=== PATIENT | female | born 1995 | race Caucasian/White ===

== ENCOUNTER 2016-09-12 20:01 | Emergency (ER) | payer MEDICARE ==
[~2016-09-12 20:01] MED LIST: COLACE100 MG PO; IBUPROFEN800 MG PO
[2016-09-12 21:39] LABS: HEMOGLOBIN 14.1 gm/dl (12.3-15.3); RED BLOOD COUNT 5.3 M/UL (4.00-5.10); WHITE BLOOD COUNT 12.9 K/UL (4.5-11.0)
[2016-09-12 21:59] LABS: BUN/CREATININE RATIO 21 (0-10)
== END 2016-09-12 23:08 | disposition home or self-care (01) ==
LOC: ER1 20:01
PROVIDERS: Preventive Medicine Occupational Medicine
DX: N39.0 Urinary tract infection, site not specified (principal)
CPT/HCPCS: 36415; 80053; 81001; 82150; 83690; 84703; 85025; 86140; 87040; 87086; 96374; 96375; 99284; J0696; J1885; J2405; J7030; J7050

== ENCOUNTER 2020-08-18 19:55 | Emergency (ER) | payer OTHER ==
[~2020-08-18 19:55] MED LIST changes: +KEFLEX CAP 500500 MG PO
[2020-08-18] MEDS ORDERED: ONDANSETRON ODT4 MG SL (21:23)
[2020-08-18] MEDS ORDERED: IMITREX50 MG PO (21:23)
== END 2020-08-18 23:55 | disposition home or self-care (01) ==
LOC: ER1 19:55
DX: G43.909 Migraine, unspecified, not intractable, without status migrainosus (principal); F41.9 Anxiety disorder, unspecified; F17.290 Nicotine dependence, other tobacco product, uncomplicated; Z88.2 Allergy status to sulfonamides
CPT/HCPCS: 93005; 96372; 99284; J0595; J1885; J2060; J2270; J2550; J3030

== ENCOUNTER 2020-10-01 09:26 | Emergency (ER) | payer OTHER ==
[~2020-10-01 09:26] MED LIST changes: +IMITREX50 MG PO; +ONDANSETRON ODT4 MG SL
[2020-10-01 12:16] LABS: HEMOGLOBIN 14.6 gm/dl (12.3-15.3); RED BLOOD COUNT 4.83 M/UL (4.00-5.10); WHITE BLOOD COUNT 12.9 K/UL (4.5-11.0)
[2020-10-01 12:43] LABS: BUN/CREATININE RATIO 14 (0-10)
[2020-10-01] MEDS ORDERED: TORADOL 10 MG T10 MG PO (15:15)
[2020-10-01] MEDS ORDERED: CEFUROXIME500 MG PO (15:15)
[2020-10-01] MEDS ORDERED: PYRIDIUM200 MG PO (15:15)
[2020-10-01] MEDS ORDERED: ZOFRAN4 MG PO (15:15)
== END 2020-10-01 15:40 | disposition home or self-care (01) ==
LOC: ER1 09:26
PROVIDERS: Physician Assistant
DX: N39.0 Urinary tract infection, site not specified (principal); N83.201 Unspecified ovarian cyst, right side; F17.210 Nicotine dependence, cigarettes, uncomplicated; Z88.2 Allergy status to sulfonamides; Z88.1 Allergy status to other antibiotic agents; Z87.442 Personal history of urinary calculi; Z88.8 Allergy status to other drugs, medicaments and biological substances
CPT/HCPCS: 76830; 80053; 81001; 83690; 84703; 85025; 96374; 96375; 96376; 99284; J0696; J1885; J2270; J2405; J7030; Q9967

== ENCOUNTER 2021-06-22 03:33 | Emergency (ER) | payer OTHER ==
[~2021-06-22 03:33] MED LIST changes: +CEFUROXIME500 MG PO; +PYRIDIUM200 MG PO; +TORADOL 10 MG T10 MG PO; +ZOFRAN4 MG PO
[2021-06-22 04:49] LABS: HEMOGLOBIN 12.3 gm/dl (12.3-15.3); RED BLOOD COUNT 4.22 M/UL (4.00-5.10); WHITE BLOOD COUNT 5.9 K/UL (4.5-11.0)
[2021-06-22 05:01] LABS: BUN/CREATININE RATIO 16 (0-10)
[2021-06-22] MEDS ORDERED: NAPROXEN500 MG PO (08:38)
[2021-06-22] MEDS ORDERED: NORFLEX 100 MG100 MG PO (08:38)
[2021-06-22] MEDS ORDERED: ZOFRAN ODT 4 MG4 MG SL (08:38)
== END 2021-06-22 08:56 | disposition home or self-care (01) ==
LOC: ER1 03:33
PROVIDERS: Student in an Organized Health Care Education/Training Program
DX: U07.1 COVID-19 (principal); R10.9 Unspecified abdominal pain; R10.819 Abdominal tenderness, unspecified site; F17.210 Nicotine dependence, cigarettes, uncomplicated; Z88.2 Allergy status to sulfonamides; Z88.1 Allergy status to other antibiotic agents
CPT/HCPCS: 70450; 80053; 81001; 82550; 82553; 83690; 83874; 84484; 84703; 85025; 87086; 93005; 96372; 96374; 99284; J1885; J2270; Q9967; U0002

== ENCOUNTER → 2021-08-16 | Outpatient (CLI) | payer OTHER ==
[~2021-08-16] MED LIST changes: +CYCLOBENZAPRINE5 MG PO; +NAPROXEN500 MG PO; +NORFLEX 100 MG100 MG PO; +ZOFRAN ODT 4 MG4 MG SL
[2021-08-16 09:30] LABS: HEMOGLOBIN 14.3 gm/dl (12.3-15.3); RED BLOOD COUNT 4.78 M/UL (4.00-5.10); WHITE BLOOD COUNT 9.1 K/UL (4.5-11.0)
== END ==
LOC: OPSV2 08:00
PROVIDERS: Obstetrics & Gynecology
DX: Z01.812 Encounter for preprocedural laboratory examination (principal); N90.60 Unspecified hypertrophy of vulva
CPT/HCPCS: 36415; 81001; 85025

== ENCOUNTER → 2021-08-24 | Day surgery (SDC) | payer OTHER ==
[~2021-08-24] MED LIST changes: +HYDROCODON-ACE1 EAC2 PO; +NAPROSYN500 MG PO; +ZOFRAN 4 MG TAB4 MG PO
== END | disposition home or self-care (01) ==
LOC: OR 09:19
DX: N90.60 Unspecified hypertrophy of vulva (principal); F17.210 Nicotine dependence, cigarettes, uncomplicated; K59.09 Other constipation; Z86.16 Personal history of COVID-19; Z88.2 Allergy status to sulfonamides; Z88.6 Allergy status to analgesic agent; Z90.49 Acquired absence of other specified parts of digestive tract; Z20.822 Contact with and (suspected) exposure to COVID-19; Z88.8 Allergy status to other drugs, medicaments and biological substances; Z97.5 Presence of (intrauterine) contraceptive device
CPT/HCPCS: 36415; 84703; C1769; J0690; J1100; J1170; J2001; J2250; J2405; J2704; J2795; J3010; J7120

== ENCOUNTER 2021-09-06 18:15 | Emergency (ER) | payer OTHER | END 2021-09-06 22:20 | disposition home or self-care (01) | LOC: ER1 18:15 | DX: T81.30XA Disruption of wound, unspecified, initial encounter (principal); W19.XXXA Unspecified fall, initial encounter | CPT/HCPCS: 99283 ==

== ENCOUNTER → 2021-11-17 | Day surgery (SDC) | payer OTHER ==
[~2021-11-17] MED LIST changes: +NAPROXEN 375 M375 MG PO; +VEGETABLE PO; +[UNRECOGNIZED DRUG - OTHER] PO
[2021-11-17 12:05] LABS: HEMOGLOBIN 14.8 gm/dl (12.3-15.3); RED BLOOD COUNT 4.89 M/UL (4.00-5.10); WHITE BLOOD COUNT 9.9 K/UL (4.5-11.0)
== END | disposition home or self-care (01) ==
LOC: OR 11:10
PROVIDERS: Obstetrics & Gynecology
DX: T81.30XA Disruption of wound, unspecified, initial encounter (principal); F17.210 Nicotine dependence, cigarettes, uncomplicated; F41.0 Panic disorder [episodic paroxysmal anxiety]; F41.9 Anxiety disorder, unspecified; Z88.2 Allergy status to sulfonamides; Z88.8 Allergy status to other drugs, medicaments and biological substances
CPT/HCPCS: 81001; 84703; 85025; J0690; J1100; J1170; J1885; J2001; J2250; J2405; J2704; J2795; J3010

== ENCOUNTER 2021-11-21 18:42 | Emergency (ER) | payer OTHER ==
[2021-11-21 20:14] LABS: HEMOGLOBIN 14.6 gm/dl (12.3-15.3); RED BLOOD COUNT 4.85 M/UL (4.00-5.10); WHITE BLOOD COUNT 9.6 K/UL (4.5-11.0)
[2021-11-21 20:36] LABS: BUN/CREATININE RATIO 10 (0-10)
== END 2021-11-21 22:05 | disposition home or self-care (01) ==
LOC: ER1 18:42
PROVIDERS: Physician Assistant
DX: G89.18 Other acute postprocedural pain (principal); R10.2 Pelvic and perineal pain; R11.2 Nausea with vomiting, unspecified; F17.290 Nicotine dependence, other tobacco product, uncomplicated; Z88.2 Allergy status to sulfonamides
CPT/HCPCS: 72193; 80053; 81001; 83605; 85025; 87086; 96374; 96375; 96376; 99284; J1885; J2270; J2405; Q9967